=== PATIENT | male | born 1935 | race Caucasian/White ===

== ENCOUNTER 2016-10-04 11:14 | Day surgery (SDC) | payer MEDICARE ==
--- NOTE | 2016-10-02 18:20 | HP ---
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 According to the patient, he is in need of chemotherapy access per Dr. Ellis. PAST MEDICAL HISTORY: In addition to the head and neck cancer, he has got hypercholesterolemia. CURRENT MEDICATIONS: Has been on pravastatin, hydrocodone, and baby aspirin. ALLERGIES: ERBITUX AND AVELOX. PAST SURGICAL HISTORY: Has had some nonhealing lesions removed on arm in the past. FAMILY HISTORY: Negative with regards to this problem. SOCIAL HISTORY: 1 pack per day smoker. Denies alcohol abuse. REVIEW OF SYSTEMS: Otherwise, pertinent for as noted above. No chest pain or palpitations. 12 systems reviewed negative or noncontributory other than above and per preadmission questionnaire. Pertinent for hard of hearing and history of smoking as well as the nasal area cancer. PHYSICAL EXAMINATION: GENERAL: No acute distress. HEENT: Sclerae nonicteric. NECK: No JVD. CHEST: Equal excursion. Nonlabored breathing. CVS: Regular rate and rhythm. ABDOMEN: Soft, nondistended. EXTREMITIES: No edema. NEURO: Alert, moving extremities grossly symmetrically. 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 FEEL HE IS A CANDIDATE. IS REQUESTED PER DR. ELLIS FOR PORT-A-CATH PLACEMENT. Risks and benefits explained in detail, but not limited to, bleeding; infection; small risk of thrombosis or pneumothorax; small risk of hematoma or seroma formation; small risk of catheter or port fracture/failure possibly requiring removal or replacement; risk of infection possibly requiring removal; small risk of arterial issues or injury; small risk of major venous tear or injury even risk of bleeding; remote risk of mortality; general risks of anesthesia, deep vein thrombosis, pulmonary embolism, or pneumonia, but not limited to as well as risk of anesthesia or sedation. He understands and agrees to the planned procedure. Will proceed with outpatient Port-a-Cath placement.
[~2016-10-04 11:14] MED LIST: Lactated Ringers 1,000 ML IV ONE; Versed 2 MG/2 ML Injection IV ONE; XYLOCAINE 1% HCL 20 ML MDV ONE
[2016-10-04] MEDS ORDERED: CEFAZOLIN 2 GM-D5W BAG** 2 GM/50 ML ML IV ONE ×2 (11:28→11:30)
[2016-10-04] MEDS ORDERED: Lactated Ringers 1,000 ML IV ONE (11:30)
[2016-10-04] MEDS ORDERED: Lactated Ringers 1,000 ML IV SCH (11:30)
[2016-10-04] MEDS ORDERED: DIPRIVAN 200 MG/20 ML IV ONE (13:40)
--- NOTE | 2016-10-04 15:00 | XRAY ---
Indication: Port placement. Intraoperative fluoroscopy was provided for 4 seconds. Single digital spot image submitted for interpretation demonstrates partially visualized left Port-A-Cath with the catheter tip not included in the [id number]. Correlate with intraoperative findings/report.
[2016-10-04] MEDS ORDERED: Romazicon 0.5 MG/5 ML Injection IJ ONE (15:19)
[2016-10-04] MEDS ORDERED: Romazicon 0.5 MG/5 ML Injection IV ONE (15:20)
--- NOTE | 2016-10-04 15:43 | XRAY ---
Indication: Short of breath. Comparison: None Portable chest slightly degraded by motion/respiration artifact. Left costophrenic angle also not included. Remaining visualized lungs hyperinflated and clear without large pneumothorax. Heart is not enlarged. There is left-sided Port-A-Cath with the tip projecting over the SVC. Bony thorax intact with osteopenia and mild degenerative changes. Impression: Nonacute hyperinflated limited chest with left-sided Port-A-Cath in situ. CT chest may yield further information if there remains further clinical concern.
--- NOTE | 2016-10-04 16:19 | OP ---
SURGERY DATE: 10/04/16 SURGERY TIME: 1354 PREOPERATIVE DIAGNOSIS: 1. 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 POSTOPERATIVE DIAGNOSIS: 1. 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 PROCEDURE: 1. Tunneled Port-a-Cath placement with C-arm fluoroscopy. SURGEON: Dr. Isaias Garcia. ANESTHESIA: MAC and 1% Lidocaine local. ESTIMATED BLOOD LOSS: Minimal. INDICATIONS: As noted above. Risks and benefits explained in detail, but not limited to. Consent was obtained. DESCRIPTION OF PROCEDURE AND FINDINGS: The patient was taken to the OR. MAC anesthesia was induced. Neck and chest prepped and draped in the usual sterile fashion. After official time-out, no disagreement in planned procedure. In the Trendelenburg position, 1% Lidocaine local was infiltrated in left subclavicular area. 18 gauge cannulation inserted. On the first pass, good dark, nonpulsatile venous return. The guidewire was passed without difficulty. Confirmed down the superior vena cava by C-arm fluoroscopy. This was followed by anesthetizing the tunnel tract and port pocket. Transverse incision made. Inferior subq port pocket created with the aid of cautery. The port was secured to the chest wall with Prolene suture X 2. Catheter was tunneled down from the cannulation stab wound to port pocked area with the dilator and breakaway sheath easily fed over the guidewire. Catheter fed down the breakaway sheath. The tip was pulled back so it was in the distal superior vena cava on C-arm fluoroscopy. Lung tristan noted to be up bilaterally. Catheter was cut to the appropriate length. Snapped on the port with the hub. The port aspirated dark, nonpulsatile, venous return with ease and flushed with heparinized saline with ease. Subq closed with 3-0 Vicryl. Skin closed with 4-0 Vicryl. Cannulation stab wound closed with 4-0 Vicryl. Steri-strips and sterile dressing applied. The patient tolerated the procedure well. There were no immediate complications. The tip was in a good location in the distal superior vena cava. Lung tristan appeared to be up bilaterally on C-arm fluoroscopy. It was felt no further x-rays were necessary at this point. Patient tolerated the procedure well. Findings discussed with the family out in the waiting area.
[2016-10-04 16:32] VITALS: BP 102/65; PULSE 96; O2SAT 96
== END 2016-10-04 16:50 | disposition home or self-care (01) ==
LOC: SDC 11:14
PROVIDERS: ATTEND Surgery
PROC: 02HV33Z Insertion of Infusion Device into Superior Vena Cava, Percutaneous Approach (ICD-10-PCS; principal; 2016-10-04)
DX: Z85.22 Personal history of malignant neoplasm of nasal cavities, middle ear, and accessory sinuses (principal)
CPT/HCPCS: 00532; 71010; 77001; 99100; C1788; J0690; J1642; J2250; J2704